=== PATIENT | male | born 1965 | race Caucasian/White ===

== ENCOUNTER 2024-07-01 12:07 | Emergency (ER) | payer OTHER ==
--- NOTE | 2024-07-01 13:32 | RAD REPORT ---
Extremity Venous Uni Ltd CLINICAL INDICATION: Male, 59 years old.SWELLING TECHNIQUE: Complete duplex sonography of the lower extremity veins was performed of the affected limb . The examination included compression for vein patency, color Doppler imaging and flow augmentation in response to distal compression of the distal external iliac, common femoral, femoral, popliteal, peroneal, tibial and great saphenous veins. [id number]. COMPARISON: No prior exams FINDINGS: Duplex sonography imaging demonstrates incompletely compressible femoral vein distally. The proximal and mid femoral vein, popliteal vein, and portions of the posterior tibial vein are noncompressible. The posterior tibial vein is partially compressible. The common femoral vein and gre ater saphenous vein are compressible. IMPRESSION: Positive for deep venous thrombosis in the left lower extremity involving the femoral vein, popliteal vein, and posterior tibial vein. Secure chat sent to Dr. Ibrahim by Dr. Mukherjee at [id number] on 07/01/24
[2024-07-01 14:37] LABS: Absolute Basophils 0.1 K/uL (0-0.5); Absolute Eosinophils 0.4 K/uL (0-0.5); Absolute Lymphocytes (CBC) 1.9 K/uL (0.7-4.9); Absolute Monocytes 0.7 K/uL (0.1-1.3); Absolute Neutrophil 6.5 K/uL (1.8-8.0); Basophils % 1.1 % (0-1.3); Eosinophils % 3.8 % (0-4.4); Hematocrit 45.3 % (39.6-49.0); Hemoglobin 14.9 g/dL (13.6-17.9); Lymphocytes % 19.7 % (15.3-44.8); MCH 29.2 pg (27.0-35.0); MCV 88.7 fL (80-100); MPV 8.3 fL (7.6-11.3); Monocytes % 7.2 % (3.3-12.3); Neutrophils % 68.2 % (41.7-73.7); Nucleated Red Blood Cells % 0.4 % (0-0); Platelets 187 thou/uL (152-406); RBC Red Blood Cell Count 5.11 M/uL (4.33-5.43); Red Cell Distribution Width 14.2 % (12.1-15.2)
[2024-07-01 14:37] LABS: PT Prothrombin Time 12.9 SECONDS (9.4-12.5); Protime INR 1.16
--- NOTE | 2024-07-01 14:51 | RAD REPORT ---
EXAM: Chest Single View HISTORY: DYSPNEA COMPARISON: None. FINDINGS: LUNGS/PLEURA: The lungs are clear. No pleural effusions or pneumothorax. No pulmonary edema. MEDIASTINUM: The mediastinal silhouette is within normal limits. CARDIAC: The cardiac silhouette is within normal limits. UPPER ABDOMEN: No significant abnormality. BONES: No acute abnormality. LINES/TUBES/OTHER: N/A IMPRESSION: No evidence of acute cardiopulmonary disease.
[2024-07-01 14:52] LABS: Troponin High Sensitivity 7.1 pg/mL (<58.9)
--- NOTE | 2024-07-01 16:20 | RAD REPORT ---
EXAMINATION: CTA CHEST PE CLINICAL INDICATION: Male, 59 years old. DYSPNEA TECHNIQUE: This examination was performed according to an angiographic protocol with 3D post-processi ng. This involves 3D reconstructions, MIPs, volume rendered images and/or shaded surface rendering. One or more of the following dose reduction techniques were used: Automated exposure control, adjustm ent of the mA and/or kV according to patient size, and/or iterative reconstruction. Unless otherwise specified, incidental findings do not require dedicated imaging follow-up. [id number]. COMPARISON: Same day chest radiograph. FINDINGS: LOWER NECK: Visualized thyroid gland and soft tissues are normal. LUNGS AND AIRWAYS: Airways are clear. No evidence of airspace or interstitial process.No suspicious a nd/or stable pulmonary nodules. PLEURA: No pleural effusion. No pneumothorax. Hemidiaphragms are normally positioned. MEDIASTINUM AND LYMPH NODES: No mediastinal mass or fluid collection. Normal size mediastinal, hilar, and axillary lymph nodes. THORACIC AORTA: No thoracic aortic aneurysm. PULMONARY ARTERIES: Saddle pulmonary embolus present with a moderate to large clot burden extending i nto the bilateral pulmonary arteries. The thrombus involves primarily the central, lobar, and segmental pulmonary arteries. HEART: Normal heart size. Coronary arterial calcifications are present.No significant pericardial eff usion. Mild right ventricular dilatation. Some reflux of contrast is noted to the hepatic vein. OSSEOUS STRUCTURES AND CHEST WALL: Multilevel degenerative changes. No acute fracture. UPPER ABDOMEN: Hepatic steatosis. IMPRESSION: Positive for pulmonary embolism with saddle pulmonary embolus and moderate to large clot burden. Righ t heart strain may be present. Discussed with to Dr. Ibrahim at 1617 on 07/01/24
[2024-07-01] MEDS ORDERED: ENOXAPARIN 40 MG/0.4 ML SQ ONE (16:44)
[2024-07-01] MEDS ORDERED: ENOXAPARIN 80 MG/0.8 ML SQ ONE (16:44)
--- NOTE | 2024-07-01 16:47 | EDPHYS ---
Physician Documentation [facility] Name: Montrell Dozier Age: 59 yrs Sex: Male : 1965 Arrival Date: 07/01/2024 Time: 12:07 Bed 26 Private MD: ED Physician Adilene Ibrahim HPI: 07/01 14:34 This 59 yrs old Male presents to ER via Ambulatory with complaints of Leg gb1 Swelling - Left knee. 14:34 Pt with LLE swelling since long car drive over [facility], has history of DVT on RT, gb1 pt has been more short of breath last three days, than usual. Normal activities make him more "winded" and short of breath.. Historical: - Allergies: 12:41 No Known Allergies; jl7 - Home Meds: 12:41 None [Active]; jl7 - PMHx: 12:41 Kidney stone; DVT; jl7 - PSHx: 12:41 right knee; jl7 - Immunization history:: Adult Immunizations unknown. - Infectious Disease History:: Denies. - Social history:: Smoking status: Patient denies any tobacco usage or history of. Exam: 14:34 Constitutional: This is a well developed, well nourished patient who is awake, alert, gb1 and in no acute distress. Head/Face: Normocephalic, atraumatic. Eyes: Pupils equal round and reactive to light, extra-ocular motions intact. Lids and lashes normal. Conjunctiva and sclera are non-icteric and not injected. Cornea within normal limits. Periorbital areas with no swelling, redness, or edema. ENT: Nares patent. No nasal discharge, no septal abnormalities noted. Tympanic membranes are normal and external auditory canals are clear. Oropharynx with no redness, swelling, or masses, exudates, or evidence of obstruction, uvula midline. Mucous membranes moist. Neck: Trachea midline, no thyromegaly or masses palpated, and no cervical lymphadenopathy. Supple, full range of motion without nuchal rigidity, or vertebral point tenderness. No Meningismus. Chest/axilla: Normal chest wall appearance and motion. Nontender with no deformity. No lesions are appreciated. Cardiovascular: Regular rate and rhythm with a normal S1 and S2. No gallops, murmurs, or rubs. Normal PMI, no JVD. No pulse deficits. Abdomen/GI: Soft, non-tender, with normal bowel sounds. No distension or tympany. No guarding or rebound. No evidence of tenderness throughout. Back: No spinal tenderness. No costovertebral tenderness. Full range of motion. Skin: Warm, dry with normal turgor. Normal color with no rashes, no lesions, and no evidence of cellulitis. MS/ Extremity: LLE calf and LE swelling, +Homans. Neurovascular intact. Full, normal range of motion. Vital Signs: 12:39 BP 128 / 88; Pulse 89; Resp 17; Temp 97.8; Pulse Ox 99% ; Weight 117.93 kg; Height 6 jl7 ft. 0 in. ; Pain 4/10; 16:00 BP 132 / 82; Pulse 80; Resp 17; Pulse Ox 98% ; me1 17:00 BP 134 / 78; Pulse 73; Resp 14; Pulse Ox 100% on R/A; me1 18:00 BP 123 / 81; Pulse 86; Resp 20; Pulse Ox 95% on R/A; me1 18:30 BP 122 / 76; Pulse 81; Resp 19; Pulse Ox 96% on R/A; me1 19:06 BP 123 / 81; Pulse 86; Resp 22; Pulse Ox 95% on R/A; me1 12:39 Body Mass Index 35.26 (117.93 kg, 182.88 cm) jl7 12:39 Pain Scale: Adult jl7 Procedures: 14:34 Ultrasound: Type: LLE venous doppler. gb1 MDM: 12:40 Medical Screening Exam initiated gb1 14:34 Differential diagnosis: PE, LLE DVT. Data reviewed: vital signs, nurses notes. gb1 16:54 ED course: Patient is a positive DVT on left lower extremity as well as a saddle gb1 pulmonary embolism with concern for right heart strain with CTA of the chest. The clot burden is large GA will plan to transfer the patient down to the [facility] for thrombectomy. I have given the patient SC Lovenox 1 mg/kg and will discuss the case with the interventional radiologist here shortly.. 16:55 ED course: At this time the patient is vitally stable with a blood pressure 128/88, gb1 pulse of 89 and respirations of 17 satting 100% on room air. He is not tachycardic or tachypneic and he is not requiring supplemental oxygen. He is a good candidate for the telemetry floor if they will accept after discussing the case with interventional radiologist for thrombectomy. Will obtain EKG which I did that shows normal sinus rhythm with a ventricular rate of 69 bpm he has T wave inversions in leads III, aVF. He also has a left axis deviation as well QTc is 437 and ND intervals 168. This is an abnormal EKG with no STEMI.. 17:41 ED course: 59-year-old male with DVT/saddle PE without RT heart strain. Pt accepted by gb1 Dr. Frederick to tele, I did discuss the case with the [facility] attending, Dr. Fournier who deferred admission.. 07/01 13:43 Order name: Basic Metabolic Panel; Complete Time: 15:17 gb1 07/01 13:43 Order name: CBC with Diff; Complete Time: 15:17 gb1 07/01 13:43 Order name: NT PRO-BNP; Complete Time: 15:17 gb1 07/01 13:43 Order name: PT-INR; Complete Time: 15:17 gb1 07/01 13:43 Order name: Troponin HS; Complete Time: 15:17 gb1 07/01 13:00 Order name: Extremity Venous Uni Ltd US; Complete Time: 14:34 gb1 07/01 13:43 Order name: XRAY Chest (1 view); Complete Time: 15:17 gb1 07/01 13:44 Order name: CT Chest For PE Angio; Complete Time: 16:41 gb1 07/01 13:43 Order name: EKG; Complete Time: 13:44 gb1 07/01 13:43 Order name: Cardiac monitoring; Complete Time: 16:40 gb1 07/01 13:43 Order name: EKG - Nurse/Tech; Complete Time: 14:40 gb1 07/01 13:43 Order name: IV Saline Lock; Complete Time: 14:25 gb1 07/01 13:43 Order name: Labs collected and sent; Complete Time: 14:25 gb1 07/01 13:43 Order name: O2 Per Protocol; Complete Time: 16:40 gb1 07/01 13:43 Order name: O2 Sat Monitoring; Complete Time: 16:40 gb1 Administered Medications: 16:48 Drug: Enoxaparin Sub-Q 1 mg/kg Sub-Q once Route: Sub-Q; Site: right lower abdomen; me1 17:21 Follow up: Response: No adverse reaction me1 Disposition Summary: 07/01/24 16:46 Transfer Ordered Notes: Transfer Location: [facility] gb1 Reason: Higher level of care gb1 Condition: Critical gb1 Problem: new gb1 Symptoms: are unchanged gb1 Accepting Physician: Dr. Frederick(07/01/24 19:12) me1 Diagnosis - Acute embolism and thrombosis of unspecified deep veins of left lower extremity gb1 - Acute right heart failure gb1 - Dyspnea gb1 Forms: - Medication Reconciliation Form gb1 - SBAR form gb1 Critical care time excluding procedures: 16:54 Critical care time: Bedside Care: 75 minutes, Consultation: 30 minutes, Family gb1 Intervention: 20 minutes. Total time: 125 minutes Signatures: Dispatcher [employer] EDKg Lau RN RN jl7 Sruthi Kaur RN RN me1 Adilene Ibrahim MD MD gb1 Corrections: (The following items were deleted from the chart) 14:43 14:34 Constitutional: This is a cachetic, pale, poorly nourished patient who is awake, gb1 alert, and in no acute distress. Head/Face: Normocephalic, atraumatic. Eyes: Pupils equal round and reactive to light, extra-ocular motions intact. Lids and lashes normal. Conjunctiva and sclera are non-icteric and not injected. Cornea within normal limits. Periorbital areas with no swelling, redness, or edema. ENT: Nares patent. No nasal discharge, no septal abnormalities noted. Tympanic membranes are normal and external auditory canals are clear. Oropharynx with no redness, swelling, or masses, exudates, or evidence of obstruction, uvula midline. Mucous membranes moist. Neck: Trachea midline, no thyromegaly or masses palpated, and no cervical lymphadenopathy. Supple, full range of motion without nuchal rigidity, or vertebral point tenderness. No Meningismus. Chest/axilla: Normal chest wall appearance and motion. Nontender with no deformity. No lesions are appreciated. Cardiovascular: Regular rate and rhythm with a normal S1 and S2. No gallops, murmurs, or rubs. Normal PMI, no JVD. No pulse deficits. Respiratory: Lungs have equal breath sounds bilaterally, clear to auscultation and percussion. No rales, rhonchi or wheezes noted. No increased work of breathing, no retractions or nasal flaring. Abdomen/GI: large middle abdominal mass, palpable. No distension or tympany. No guarding or rebound. +tenderness throughout. Back: No spinal tenderness. No costovertebral tenderness. Full range of motion. Skin: Warm, dry with normal turgor. pale with no rashes, no lesions, and no evidence of cellulitis. MS/ Extremity: Pulses equal, no cyanosis. Neurovascular intact. Full, normal range of motion. gb1 19:12 16:46 Dr. Frederick gb1 me1
--- NOTE | 2024-07-01 16:47 | ER ---
Nurse's Notes [facility] Name: Montrell Dozier Age: 59 yrs Sex: Male : 1965 Arrival Date: 07/01/2024 Time: 12:07 Bed 26 Private MD: Diagnosis: Acute embolism and thrombosis of unspecified deep veins of left lower extremity;Acute right heart failure;Dyspnea Presentation: 07/01 12:39 Chief complaint: Patient states: Left leg pain, redness, swelling x 9 days. Coronavirus jl7 screen: At this time, the client does not indicate any symptoms associated with coronavirus-19. Ebola Screen: No symptoms or risks identified at this time. Initial Sepsis Screen: Does the patient meet any 2 criteria? No. Patient's initial sepsis screen is negative. Does the patient have a suspected source of infection? No. Patient's initial sepsis screen is negative. Risk Assessment: Do you want to hurt yourself or someone else? Patient reports no desire to harm self or others. Onset of symptoms was June 22, 2024. 12:39 Method Of Arrival: Ambulatory jl7 12:39 Acuity: EVELYN 3 jl7 Triage Assessment: 12:41 General: Appears in no apparent distress. uncomfortable, Behavior is calm, cooperative, jl7 appropriate for age. Pain: Complains of pain in left calf Pain currently is 4 out of 10 on a pain scale. Musculoskeletal: Swelling present in left leg. Historical: - Allergies: 12:41 No Known Allergies; jl7 - Home Meds: 12:41 None [Active]; jl7 - PMHx: 12:41 Kidney stone; DVT; jl7 - PSHx: 12:41 right knee; jl7 - Immunization history:: Adult Immunizations unknown. - Infectious Disease History:: Denies. - Social history:: Smoking status: Patient denies any tobacco usage or history of. Screenin:00 Abuse screen: Denies threats or abuse. Denies injuries from another. Nutritional ss screening: No deficits noted. Tuberculosis screening: Never had TB. 16:05 [facility] ED Fall Risk Assessment (Adult) History of falling in the last 3 months, me1 including since admission No falls in past 3 months (0 pts) Confusion or Disorientation No (0 pts) Intoxicated or Sedated No (0 pts) Impaired Gait No (0 pts) Mobility Assist Device Used No (0 pt) Altered Elimination No (0 pt) Score/Fall Risk Level 0 - 2 = Low Risk Maintained a safe environment, Provided non-skid footwear, Hourly rounding (assess needs \T\ fall precautionary measures) done. Assessment: 13:30 General: Appears in no apparent distress. Behavior is calm, cooperative. Pain: ss Complains of pain in left calf Pain currently is 4 out of 10 on a pain scale. Quality of pain is described as aching, Pain began 9 days ago Is continuous. Neuro: Level of Consciousness is awake, alert, obeys commands, Oriented to person, place, time, situation, Speech is normal, Facial symmetry appears normal. Cardiovascular: redness and swelling to LLE, pt reports pain began 9 days ago. Respiratory: Airway is patent Respiratory effort is even, unlabored, Respiratory pattern is regular, symmetrical, Denies cough, shortness of breath. GI: No signs and/or symptoms were reported involving the gastrointestinal system. : No signs and/or symptoms were reported regarding the genitourinary system. Derm: Skin is pink, warm \T\ dry. normal. 15:00 Reassessment: Patient appears in no apparent distress at this time. Patient and/or ss family updated on plan of care and expected duration. Pain level reassessed. 16:00 Reassessment: back from CT, via stretcher. Placed in room 26 on telemetry. ss 16:05 General: Appears in no apparent distress. well groomed, well developed, well nourished, me1 Behavior is calm, cooperative, appropriate for age. Pain: Complains of pain in left leg and left calf Pain does not radiate. Pain currently is 4 out of 10 on a pain scale. Quality of pain is described as aching, tender, Is continuous. Neuro: Level of Consciousness is awake, alert, obeys commands, Oriented to person, place, time, situation, Appropriate for age. Cardiovascular: Patient's skin is warm and dry. Respiratory: Airway is patent Respiratory effort is even, unlabored, Respiratory pattern is regular, symmetrical. GI: No signs and/or symptoms were reported involving the gastrointestinal system. : No signs and/or symptoms were reported regarding the genitourinary system. Derm: Skin is intact, Skin is pink, warm \T\ dry. normal. Musculoskeletal: Reports pain in left leg and left calf. Vital Signs: 12:39 BP 128 / 88; Pulse 89; Resp 17; Temp 97.8; Pulse Ox 99% ; Weight 117.93 kg; Height 6 jl7 ft. 0 in. ; Pain 4/10; 16:00 BP 132 / 82; Pulse 80; Resp 17; Pulse Ox 98% ; me1 17:00 BP 134 / 78; Pulse 73; Resp 14; Pulse Ox 100% on R/A; me1 18:00 BP 123 / 81; Pulse 86; Resp 20; Pulse Ox 95% on R/A; me1 18:30 BP 122 / 76; Pulse 81; Resp 19; Pulse Ox 96% on R/A; me1 19:06 BP 123 / 81; Pulse 86; Resp 22; Pulse Ox 95% on R/A; me1 12:39 Body Mass Index 35.26 (117.93 kg, 182.88 cm) jl7 12:39 Pain Scale: Adult jl7 ED Course: 12:09 Patient arrived in ED. ra3 12:14 Adilene Ibrahim MD is Attending Physician. gb1 12:41 Triage completed. jl7 12:41 Arm band placed on right wrist. jl7 12:42 Kg Pritchett, MARIA LUISA is Primary Nurse. jl7 13:24 Extremity Venous Uni Ltd US In Process Unspecified. EDMS 14:30 Inserted saline lock: 22 gauge in right antecubital area, using aseptic technique. ss ,using aseptic technique. insertion by YELITZA Altamirano Blood collected. Flushed with 10 mL NS. 14:40 EKG done, by ED staff, reviewed by Adilene Ibrahim MD. zm 14:44 XRAY Chest (1 view) In Process Unspecified. EDMS 15:00 Patient has correct armband on for positive identification. Bed in low position. Call ss light in reach. 15:00 Client placed on continuous cardiac and pulse oximetry monitoring. NIBP monitoring ss applied. 15:55 CT Chest For PE Angio In Process Unspecified. EDMS 16:05 Provided Education on: POC. Verbalized understanding.. me1 16:05 No provider procedures requiring assistance completed. me1 16:42 TC called to initiate patient transfer, spoke with Marissa. ty 17:28 TRANSFER CENTER CALLED FOR DOC TO DOC. ty 17:37 TRANSFER CENTER FOR DOC TO DOC. ty 18:28 [facility] CALLED FOR PATIENT TRANSPORT. ty 18:41 Patient transferred, IV remains in place. [facility] Administered Medications: 16:48 Drug: Enoxaparin Sub-Q 1 mg/kg Sub-Q once Route: Sub-Q; Site: right lower abdomen; [facility] 17:21 Follow up: Response: No adverse reaction [facility] Medication: 15:00 VIS not applicable for this client. Outcome: 16:46 ER care complete, transfer ordered by . [facility] 18:36 Transferred by ground EMS to [facility], Note: Report called to [facility] MARIA LUISA Mendes 18:36 Condition: stable 18:36 Instructed on the need for transfer, 19:12 Patient left the ED. [facility] Signatures: Dispatcher [employer] Jaelyn Jcak RN RN Kg Pritchett RN RN Loli Aquino Michelle, RN RN [facility] Adilene Ibrahim MD MD Dodei Chilel Tylor ty
[2024-07-02 00:27] VITALS: TEMP 97.8
[2024-07-02 00:37] VITALS: BP 123/81; O2SAT 95
--- NOTE | 2024-07-04 12:12 | EKG ---
Test Date: 2024-07-01 Test Time: 14:36:04 Tissue Technician: AM MEASUREMENT RESULTS: Intervals: Rate: 69 IL: 168 QRSD: 72 QT: 408 QTc: 437 [place]: P: -5 IL: 168 QRS: -54 T: 0 INTERPRETIVE STATEMENTS: Normal sinus rhythm Left axis deviation Inferior infarct, age undetermined Anterolateral infarct, age undetermined Abnormal ECG No previous ECG available for comparison Electronically Signed On 07-04-24 12:10:59 CERAM[employer] MACHINE OPERATOR by Ortiz Aragon
== END 2024-07-01 19:12 | disposition short-term general hospital (02) ==
LOC: ER 12:07
DX: I82.4Z2 Acute embolism and thrombosis of unspecified deep veins of left distal lower extremity (principal); I50.9 Heart failure, unspecified; R06.00 Dyspnea, unspecified
CPT/HCPCS: 93005; 85025; 80048; 36415; 85610; 84484; 83880; 71275; 71045; 93971; 96372; 99285; Q9967; J1650